=== PATIENT | female | born 2000 | race Caucasian/White ===

== ENCOUNTER 2019-01-22 07:55 | Emergency (ER) | payer SELFPAY ==
--- NOTE | 2019-01-22 09:36 | ER Document Report ---
ED Medical Screen (RME) - General Chief Complaint: Abdominal Pain Stated Complaint: STOMACH PAINS,VOMITING Time Seen by Provider: 01/22/19 09:31 Mode of Arrival: Ambulatory Information source: Patient Notes: 19-year-old female presents to ED for complaint of abdominal pain nausea vomiting and constipation. She states her last bowel movement was yesterday. She states she is type I diabetic. She has been vomiting. She states her sugars have been running in the 300's. Patient is alert oriented respirations regular and unlabored speaking in full sentences walks with even steady gait. I have greeted and performed a rapid initial assessment of this patient. A comprehensive ED assessment and evaluation of the patient, analysis of test results and completion of medical decision making process will be conducted by an additional ED providers. Dictation of this chart was performed using voice recognition software; therefore, there may be some unintended grammatical errors. TRAVEL OUTSIDE OF THE [place] IN LAST 30 DAYS: No - Related Data Allergies/Adverse Reactions: No Known Allergies Allergy (Verified 01/22/19 07:59) Physical Exam - Vital signs Vitals: Temp Pulse Resp BP Pulse Ox 97.8 F 102 H 20 117/69 98 01/22/19 08:09 01/22/19 08:09 01/22/19 08:09 01/22/19 08:09 01/22/19 08:09 Course - Vital Signs Vital signs: Temp Pulse Resp BP Pulse Ox 97.8 F 102 H 20 117/69 98 01/22/19 08:09 01/22/19 08:09 01/22/19 08:09 01/22/19 08:09 01/22/19 08:09
[2019-01-22] MEDS: NORMAL SALINE 1000 ML 1,000 ML IV PRN ×2 (09:54→09:55)
[2019-01-22 10:10] LABS: ABSOLUTE LYMPHOCYTES (AUTO) 1.1 10^3/uL (0.5-4.7); ABSOLUTE MONOCYTES (AUTO) 0.3 10^3/uL (0.1-1.4); ABSOLUTE NEUT (AUTO) 6.3 10^3/uL (1.7-8.2); BASOPHILS % (AUTO) 0.5 % (0-2); EOSINOPHILS % (AUTO) 0.4 % (0-6); HEMATOCRIT 43.1 % (36.0-47.0); HEMOGLOBIN 14.1 g/dL (12.0-15.5); LYMPHOCYTES % (AUTO) 14.5 % (13-45); MEAN CORPUSCULAR HEMOGLOBIN 28.3 pg (27.0-33.4); MEAN CORPUSCULAR HGB CONC 32.8 g/dL (32.0-36.0); MEAN CORPUSCULAR VOLUME 86 fl (80-97); MONOCYTES % (AUTO) 3.4 % (3-13); PLATELET COUNT 289 10^3/uL (150-450); RED BLOOD COUNT 4.99 10^6/uL (3.72-5.28); RED CELL DISTRIBUTION WIDTH 14.5 % (11.5-14.0); SEGMENTED NEUTROPHILS % (AUTO) 81.2 % (42-78); TOTAL CELLS COUNTED % (AUTO) 100 %; WHITE BLOOD COUNT 7.7 10^3/uL (4.0-10.5)
[2019-01-22 10:15] LABS: VENOUS BLOOD BASE EXCESS -9.2 mmol/L; VENOUS BLOOD HCO3 18.3 mmol/L (20-32); VENOUS BLOOD PCO2 45.3 mmHg (35-63); VENOUS BLOOD PH 7.22 (7.30-7.42)
[2019-01-22 10:32] LABS: APPEARANCE,URINE CLEAR; BILIRUBIN,URINE NEGATIVE (NEGATIVE); COLOR,URINE STRAW; GLUCOSE, URINE >=1000 mg/dL (NEGATIVE); KETONES,URINE 300 mg/dL (NEGATIVE); LEUKOCYTE ESTERASE,URINE NEGATIVE (NEGATIVE); NITRITE,URINE NEGATIVE (NEGATIVE); PROTEIN,URINE NEGATIVE (NEGATIVE); URINE SPECIFIC GRAVITY 1.029; UROBILINOGEN,URINE NEGATIVE mg/dL (<2.0)
[2019-01-22 10:36] LABS: ALANINE AMINOTRANSFERASE 21 U/L (9-52); ALBUMIN 4.5 g/dL (3.5-5.0); ALKALINE PHOSPHATASE 110 U/L (38-126); ANION GAP 17 (5-19); ASPARTATE AMINO TRANSFERASE 20 U/L (14-36); BILIRUBIN,DIRECT 0.4 mg/dL (0.0-0.4); BILIRUBIN,TOTAL 0.5 mg/dL (0.2-1.3); BLOOD UREA NITROGEN 10 mg/dL (7-20); CALCIUM 9.4 mg/dL (8.4-10.2); CARBON DIOXIDE 19 mmol/L (22-30); CHLORIDE 103 mmol/L (98-107); CREATINE KINASE 57 U/L (30-135); GLUCOSE 328 mg/dL (75-110); POTASSIUM 3.9 mmol/L (3.6-5.0); TOTAL PROTEIN 7.3 g/dL (6.3-8.2)
--- NOTE | 2019-01-22 11:06 | ER Document Report ---
HPI - HPI Patient complains to provider of: abdominal pain Time Seen by Provider: 01/22/19 10:45 Onset/Duration: Gradual, Intermittent Quality of pain: Cramping, Fullness Severity: Mild Pain Level: 2 Context: 18 yr old female patient, accompanied by mom per her request, with the listed pmh, here for intermittent crampy diffuse abdominal pain, and a few episodes of nonbloody nonbilous vomiting and no bm since yesterday, but has been having these sx intermittently x the last several months. took an ex lax and did a suppository yest but no bm as of yet so she came in. hx of alternating constipation and diarrhea with vomiting as well for months. she was supposed to f/u with gi to have an egd a month or more ago for the same sx but she never f/u with them secondary to lack of insurance. feels like she may have been diagnosed with ibs but isn't on any meds for it nor has she ever been. denies being diagnosed with gastroparesis or h.pylori. hx of diabetes. states sugars from from 130s-300s but she has never been in dka per pt. she does have insulin at home, endorses some compliance with it but not full compliance. No abdominal surgeries. pcp is bella, No history of ovarian cysts, fibroids, endometriosis, or renal stones. No UTI symptoms. No URI symptoms. No recent antibiotics or steroids. No history of asthma. No vaginal discharge/complaints/lesions or concerns for STDs and does not want a pelvic exam. No ripping or tearing sensation. Hasn't taken anything else for her symptoms. No excessive NSAID use, Tylenol use, or EtOH. No prior history of pancreatitis, ulcers, GI bleed, GERD, Crohn's, or UC. no blood thinners. no fall or trauma. no other associated sx. Associated Symptoms: Diarrhea, Nausea, Vomiting Exacerbated by: Denies Relieved by: Denies Similar symptoms previously: Yes Recently seen / treated by doctor: No - ROS Systems Reviewed and Negative: Yes All other systems reviewed and negative - to include 10, unless mentioned in the hpi - REPRODUCTIVE LMP: 01/02/19 Reproductive: DENIES: : - DERM Skin Color: Normal Past Medical History - General Information source: Patient, Parent - mother - Social History Smoking Status: Unknown if Ever Smoked Frequency of alcohol use: None Drug Abuse: Other - unknown Lives with: Family Family History: Reviewed & Not Pertinent Patient has suicidal ideation: No Patient has homicidal ideation: No Endocrine Medical History: Reports: Hx Diabetes Mellitus Type 1 Renal/ Medical History: Denies: Hx Peritoneal Dialysis Malignancy Medical History: Reports: None GI Medical History: Reports: Hx Irritable Bowel Psychiatric Medical History: Reports: Hx Anxiety, Hx Depression Past Surgical History: Reports: Hx Tonsillectomy - Immunizations Immunizations up to date: Yes Vertical Provider Document - CONSTITUTIONAL Notes: >>>> PHYSICAL_EXAM: GENERAL_APPEARANCE: well_nourished, alert, cooperative, no_acute_distress, no_obvious_discomfort. Pleasant, young, female, playing on her phone, smiling, speaking in full sentences, in no sign of pain or resp distress, easily sitting up, mother at bedside VITALS: reviewed, see vital signs table. HEAD: normocephalic, atraumatic. no elias signs. no raccoon eyes. EYES: PERRL, EOMI, (-)scleral icterus. NOSE: no_nasal_discharge. MOUTH: (-)decreased moisture. THROAT: no_tonsilar_inflammation/hypertrophy/exudate NECK: supple, no_neck_tenderness, full rom. full strength. no meningeal signs. BACK: no midline_back_tenderness. no step offs or deformities CHEST_WALL: no_chest_tenderness. LUNGS: no_wheezing, (-)accessory muscle use, good air exchange bilateral. HEART: normal_rate, normal_rhythm, ABDOMEN: normal_BS, soft, abdomen-diffuse, mildly ttp diffusely when not distracted. no ttp when distracted, (-)guarding, (-)rebound, no distension or peritoneal signs. neg murphys. neg mcburneys. no cva tenderness. neg heel strike. neg obturator. neg psoas. neg rovsign. PELVIC: deferred by pt RECTAL: deferred; however no sign of loss of bowel or bladder or soiling of clothing. EXTREMITIES: strength 5/5 in all_extremities, good pulses in all_extremities, no_edema, no_swelling\tenderness. full rom. normal gait. good hand packager. brisk cap refill. SKIN: warm, dry, good_color, no_rash. no grossly visible overlying skin changes to suggest trauma NEURO: motor_intact, sensory_intact. cranial nerves 2-12 intact, cerebellar fxn intact MENTAL_STATUS: normal_affect, speech_clear, oriented_X_3, responds_appropriately to questions. - INFECTION CONTROL TRAVEL OUTSIDE OF THE [place] IN LAST 30 DAYS: No Course - Re-evaluation Re-evalutation: 01/22/19 12:53 pt here for abd pain, some mild constipation since yest, and n/v x 3 x the last few days, has been intermittent for months however. states n/v has resolved since a day or so ago and she denies any nausea currently and doesn't want anything for pain or nausea. hasn't f/u with gi due to insurance/monetary reasons. she has no abd ttp on serial abd exams. triage labs unremarkable other than hyperglycemia without signs of dka. this came down from 340s at triage, to 160s after 2L of NS. ua appears also contaminated. she denies uti sx. ucx pending. triage abd kub xr shows nothing acute per rad and reviewed by myself. pt informed of her findings. advised sx care. bland diet. drink plenty of fluids. advised to keep a close check on her sugars and use her sliding scale and insulin as prescribed by her doctor and f/u closely with gi/pcp for further workup. will dc with a few zofran. advised otc miralax or mag citrate prn constipation along with stool softeners. denies any rectal bleeding/sx/pain or hx of hemorrhoids. advised to f/u with pcp/gi in 1-2 days. return for any worsening symptoms. vss. well appearing. satting well on ra. neurononfocal. pt understands and agrees to plan. On reexam, pt improved with tx listed. remained stable. nontoxic. well kranthi earing. pain controlled. tolerating po. requesting to go home. serial abd exams remain benign. Documentation achieved through voice recording which my lead to some occasional accidental typographical errors. Extensive efforts have been made to proof read documentation to make sure these are the least as possible. Category Date Time Status Accucheck (ED) NOW Care 01/22/19 09:31 Completed Accucheck (ED) Q1H Care 01/22/19 09:32 Completed PCT AccuChek Documentation NOW Care 01/22/19 09:32 Active Saline Lock (ED) NOW Care 01/22/19 09:32 Completed Vital Signs (ED) NOW Care 01/22/19 12:50 Active KUB/ABDOMEN (SINGLE VIEW) [RAD] Stat Exams 01/22/19 09:33 Completed ADD ON [ADD ON TESTING BLD IN LAB] [CHEM] Stat Lab 01/22/19 09:37 Completed CBC WITH DIFF [HEME] Stat Lab 01/22/19 09:37 Completed COMPREHENSIVE METABOLIC PANEL [CHEM] Stat Lab 01/22/19 09:37 Completed CREATINE KINASE [CHEM] Stat Lab 01/22/19 09:37 Completed HCG-QUAL, SERUM [CHEM] Stat Lab 01/22/19 09:37 Completed LIPASE [CHEM] Stat Lab 01/22/19 09:37 Completed URINALYSIS [URIN] Stat Lab 01/22/19 09:37 Completed URINE CULTURE [MC] Stat Lab 01/22/19 09:37 Completed VENOUS BLOOD GAS (PERIPHERAL) [CHEM] Stat Lab 01/22/19 09:37 Completed Normal Saline 1000 ml [NaCl 0.9% 1000 ml IV Soln] 1,000 Med 01/22/19 09:32 Discontinued ml IV X 2 BAGS - Vital Signs Vital signs: Temp Pulse Resp BP Pulse Ox 97.8 F 102 H 20 117/69 98 01/22/19 08:09 01/22/19 08:09 01/22/19 08:09 01/22/19 08:09 01/22/19 08:09 Temp Pulse Pulse Resp BP BP Pulse Ox 01/22/19 13:08 82 16 107/55 L 100 01/22/19 08:09 97.8 F 102 H 20 117/69 98 - Laboratory Result Diagrams: 01/22/19 09:37 01/22/19 09:37 Laboratory results interpreted by me: 01/22/19 01/22/19 01/22/19 09:33 09:37 09:37 RDW 14.5 H Seg Neutrophils % 81.2 H VBG pH VBG HCO3 Carbon Dioxide 19 L Glucose 328 H POC Glucose 343 H Urine Glucose (UA) Urine Ketones 01/22/19 01/22/19 01/22/19 09:37 09:37 09:45 RDW Seg Neutrophils % VBG pH 7.22 L VBG HCO3 18.3 L Carbon Dioxide Glucose POC Glucose 310 H Urine Glucose (UA) >=1000 H Urine Ketones 300 H 01/22/19 12:53 01/22/19 01/22/19 01/22/19 09:33 09:37 09:37 RDW 14.5 H Seg Neutrophils % 81.2 H VBG pH VBG HCO3 Carbon Dioxide 19 L Glucose 328 H POC Glucose 343 H Lipase Urine Glucose (UA) Urine Ketones 01/22/19 01/22/19 01/22/19 09:37 09:37 09:37 RDW Seg Neutrophils % VBG pH 7.22 L VBG HCO3 18.3 L Carbon Dioxide Glucose POC Glucose Lipase 22.0 L Urine Glucose (UA) >=1000 H Urine Ketones 300 H 01/22/19 01/22/19 09:45 11:07 RDW Seg Neutrophils % VBG pH VBG HCO3 Carbon Dioxide Glucose POC Glucose 310 H 160 H Lipase Urine Glucose (UA) Urine Ketones Category Date Time Status Accucheck (ED) NOW Care 01/22/19 09:31 Completed Accucheck (ED) Q1H Care 01/22/19 09:32 Completed PCT AccuChek Documentation NOW Care 01/22/19 09:32 Active Saline Lock (ED) NOW Care 01/22/19 09:32 Completed Vital Signs (ED) NOW Care 01/22/19 12:50 Ordered KUB/ABDOMEN (SINGLE VIEW) [RAD] Stat Exams 01/22/19 09:33 Completed ADD ON [ADD ON TESTING BLD IN LAB] [CHEM] Stat Lab 01/22/19 09:37 Completed CBC WITH DIFF [HEME] Stat Lab 01/22/19 09:37 Completed COMPREHENSIVE METABOLIC PANEL [CHEM] Stat Lab 01/22/19 09:37 Completed CREATINE KINASE [CHEM] Stat Lab 01/22/19 09:37 Completed HCG-QUAL, SERUM [CHEM] Stat Lab 01/22/19 09:37 Completed LIPASE [CHEM] Stat Lab 01/22/19 09:37 Completed URINALYSIS [URIN] Stat Lab 01/22/19 09:37 Completed URINE CULTURE [MC] Stat Lab 01/22/19 09:37 Received VENOUS BLOOD GAS (PERIPHERAL) [CHEM] Stat Lab 01/22/19 09:37 Completed Normal Saline 1000 ml [NaCl 0.9% 1000 ml IV Soln] 1,000 Med 01/22/19 09:32 Discontinued ml IV X 2 BAGS Labs- Entire Visit 01/22/19 01/22/19 01/22/19 09:33 09:37 09:37 WBC 7.7 RBC 4.99 Hgb 14.1 Hct 43.1 MCV 86 MCH 28.3 MCHC 32.8 RDW 14.5 H Plt Count 289 Seg Neutrophils % 81.2 H Lymphocytes % 14.5 Monocytes % 3.4 Eosinophils % 0.4 Basophils % 0.5 Absolute Neutrophils 6.3 Absolute Lymphocytes 1.1 Absolute Monocytes 0.3 Absolute Eosinophils 0.0 Absolute Basophils 0.0 VBG pH VBG pCO2 VBG HCO3 VBG Base Excess Sodium 139.2 Potassium 3.9 Chloride 103 Carbon Dioxide 19 L Anion Gap 17 BUN 10 Creatinine 0.63 Est GFR ( Amer) > 60 Est GFR (Non-Af Amer) > 60 Glucose 328 H POC Glucose 343 H Calcium 9.4 Total Bilirubin 0.5 Direct Bilirubin 0.4 Neonat Total Bilirubin Not Reportable Neonat Direct Bilirubin Not Reportable Neonat Indirect Bili Not Reportable AST 20 ALT 21 Alkaline Phosphatase 110 Creatine Kinase 57 Total Protein 7.3 Albumin 4.5 Lipase Serum HCG, Qual Urine Color Urine Appearance Urine pH Ur Specific [place] Urine Protein Urine Glucose (UA) Urine Ketones Urine Blood Urine Nitrite Urine Bilirubin Urine Urobilinogen Ur Leukocyte Esterase Urine WBC (Auto) Urine RBC (Auto) Urine Bacteria (Auto) Squamous Epi Cells Auto Urine Mucus (Auto) Urine Ascorbic Acid 01/22/19 01/22/19 01/22/19 09:37 09:37 09:37 WBC RBC Hgb Hct MCV MCH MCHC RDW Plt Count Seg Neutrophils % Lymphocytes % Monocytes % Eosinophils % Basophils % Absolute Neutrophils Absolute Lymphocytes Absolute Monocytes Absolute Eosinophils Absolute Basophils VBG pH 7.22 L VBG pCO2 45.3 VBG HCO3 18.3 L VBG Base Excess -9.2 Sodium Potassium Chloride Carbon Dioxide Anion Gap BUN Creatinine Est GFR ( Amer) Est GFR (Non-Af Amer) Glucose POC Glucose Calcium Total Bilirubin Direct Bilirubin Neonat Total Bilirubin Neonat Direct Bilirubin Neonat Indirect Bili AST ALT Alkaline Phosphatase Creatine Kinase Total Protein Albumin Lipase Serum HCG, Qual NEGATIVE Urine Color STRAW Urine Appearance CLEAR Urine pH 6.0 Ur Specific [place] 1.029 Urine Protein NEGATIVE Urine Glucose (UA) >=1000 H Urine Ketones 300 H Urine Blood NEGATIVE Urine Nitrite NEGATIVE Urine Bilirubin NEGATIVE Urine Urobilinogen NEGATIVE Ur Leukocyte Esterase NEGATIVE Urine WBC (Auto) 0 Urine RBC (Auto) 1 Urine Bacteria (Auto) TRACE Squamous Epi Cells Auto 1 Urine Mucus (Auto) RARE Urine Ascorbic Acid NEGATIVE 01/22/19 01/22/19 01/22/19 09:37 09:45 11:07 WBC RBC Hgb Hct MCV MCH MCHC RDW Plt Count Seg Neutrophils % Lymphocytes % Monocytes % Eosinophils % Basophils % Absolute Neutrophils Absolute Lymphocytes Absolute Monocytes Absolute Eosinophils Absolute Basophils VBG pH VBG pCO2 VBG HCO3 VBG Base Excess Sodium Potassium Chloride Carbon Dioxide Anion Gap BUN Creatinine Est GFR ( Amer) Est GFR (Non-Af Amer) Glucose POC Glucose 310 H 160 H Calcium Total Bilirubin Direct Bilirubin Neonat Total Bilirubin Neonat Direct Bilirubin Neonat Indirect Bili AST ALT Alkaline Phosphatase Creatine Kinase Total Protein Albumin Lipase 22.0 L Serum HCG, Qual Urine Color Urine Appearance Urine pH Ur Specific [place] Urine Protein Urine Glucose (UA) Urine Ketones Urine Blood Urine Nitrite Urine Bilirubin Urine Urobilinogen Ur Leukocyte Esterase Urine WBC (Auto) Urine RBC (Auto) Urine Bacteria (Auto) Squamous Epi Cells Auto Urine Mucus (Auto) Urine Ascorbic Acid - Diagnostic Test Radiology reviewed: Image reviewed, Reports reviewed Radiology results interpreted by me: 01/22/19 12:53 KUB X-Ray 01/22/19 09:33 IMPRESSION: NO RADIOGRAPHIC EVIDENCE FOR ACUTE ABDOMINAL DISEASE. No constipation. Discharge - Discharge Clinical Impression: Hyperglycemia Abdominal pain Qualifiers: Abdominal location: generalized Qualified Code(s): R10.84 - Generalized abdominal pain Constipation Qualifiers: Constipation type: unspecified constipation type Qualified Code(s): K59.00 - Constipation, unspecified Vomiting Qualifiers: Vomiting type: unspecified Vomiting Intractability: non-intractable Nausea presence: unspecified Qualified Code(s): R11.10 - Vomiting, unspecified Condition: Good Disposition: HOME, SELF-CARE Instructions: Abdominal Pain ([facility]), Vomiting ([facility]) Additional Instructions: Follow-up with PCP/GI in 1 to 2 days. Return for any worsening symptoms. Drink plenty of fluids. High-fiber diet. MiraLAX or [id number] magnesium citrate to have a good bowel movement. Colace or similar [id number] stool softener. Keep a close check on your blood sugars and adjust your insulin as instructed per your specialist. Follow-up with GI for your chronic abdominal pain for further workup of this as discussed. Prescriptions: Ondansetron [Zofran Odt 4 mg Tablet] 1 - 2 tab PO Q8 #15 tab.rapdis Forms: Return to Work
--- NOTE | 2019-01-22 12:06 | RADIOLOGY REPORT (SQ) ---
EXAM DESCRIPTION: KUB/ABDOMEN (SINGLE VIEW) COMPLETED DATE/TIME: 01/22/2019 11:16 am REASON FOR STUDY: IF hCG is negative; patient states constipation COMPARISON: None. NUMBER OF VIEWS: One view. TECHNIQUE: Supine radiographic image of the abdomen acquired. LIMITATIONS: None. FINDINGS: BOWEL GAS PATTERN: Normal bowel gas pattern. No dilated loops. CONSTIPATION: No CALCIFICATIONS: No suspicious calcifications. SOFT TISSUES: No gross mass or suggestion of organomegaly. HARDWARE: None in the abdomen. BONES: No acute fracture. No worrisome bone lesions. OTHER: No other significant finding. IMPRESSION: NO RADIOGRAPHIC EVIDENCE FOR ACUTE ABDOMINAL DISEASE. No constipation. TECHNICAL DOCUMENTATION: JOB ID: [id number] [employer]- All Rights Reserved Reading location - IP/workstation name: [email or web address]
[2019-01-22 13:09] VITALS: BP 107/55
== END 2019-01-22 13:09 | disposition home or self-care (01) ==
LOC: ER 07:55
DX: K59.00 Constipation, unspecified (principal); E10.65 Type 1 diabetes mellitus with hyperglycemia; Z91.14 Patient's other noncompliance with medication regimen; R10.84 Generalized abdominal pain; R11.2 Nausea with vomiting, unspecified; R19.7 Diarrhea, unspecified
CPT/HCPCS: 99284; 96360; 36415; 87086; 82962; 82550; 83690; 84703; 85025; 80053; 81001; 82803; 74018; J7030

== ENCOUNTER 2019-05-29 14:28 | Emergency (ER) | payer SELFPAY ==
--- NOTE | 2019-05-29 14:45 | ER Document Report ---
HPI - HPI Time Seen by Provider: 05/29/19 14:33 Context: Patient is a 18-year-old female with a history of type 2 diabetes and anxiety who presents to the emergency department with chief complaint of right hand pain. Patient reports on Tuesday while at work she hit her hand on a tray. Patient reports from this incident she does have right lateral hand pain. Patient states last night she was playing with her cat when her cat went to scratch her at the base of the fourth digit on the right hand. Patient reports as her cat attempted to scratch her she pulled her hand back. Patient reports she did not hit her hand on anything but does have bruising to the area. Patient reports the scratch is very superficial. Patient denies fever, inability to move her fingers or make a fist. Patient denies numbness or tingling to her hand. Patient reports she wanted to get checked out due to the multiple injuries to the right hand and bruising. - REPRODUCTIVE Reproductive: DENIES: : Past Medical History - General Information source: Patient - Social History Smoking Status: Unknown if Ever Smoked Lives with: Family Family History: Reviewed & Not Pertinent - Past Medical History Cardiac Medical History: Reports: None Pulmonary Medical History: Reports: None EENT Medical History: Reports: None Neurological Medical History: Reports: None Endocrine Medical History: Reports: Hx Diabetes Mellitus Type 1 Renal/ Medical History: Reports: None. Denies: Hx Peritoneal Dialysis Malignancy Medical History: Reports: None GI Medical History: Reports: Hx Irritable Bowel Musculoskeletal Medical History: Reports None Skin Medical History: Reports None Psychiatric Medical History: Reports: Hx Anxiety, Hx Depression Traumatic Medical History: Reports: None Infectious Medical History: Reports: None Past Surgical History: Reports: Hx Tonsillectomy - Immunizations Immunizations up to date: Yes Vertical Provider Document - CONSTITUTIONAL Agree With Documented VS: Yes Exam Limitations: No Limitations General Appearance: No Apparent Distress - INFECTION CONTROL TRAVEL OUTSIDE OF THE [place] IN LAST 30 DAYS: No - HEENT HEENT: Atraumatic, Normocephalic, PERRLA - RESPIRATORY Respiratory: Breath Sounds Normal, No Respiratory Distress - CARDIOVASCULAR Cardiovascular: Regular Rate, Regular Rhythm - GI/ABDOMEN Gastrointestinal: Abdomen Soft, Abdomen Non-Tender, Normal Bowel Sounds - MUSCULOSKELETAL/EXTREMETIES Notes: Patient has point tenderness to the base of the right fifth metacarpal. There is no surrounding edema or ecchymosis. Patient has a superficial abrasion to the base of the right fourth digit. There is surrounding ecchymosis that extends past the PIP joint. There is no point tenderness to the DIP, PIP or MCP joint. There is no surrounding edema. Patient is able to make a strong chef german bilaterally. Patient has less than 2-second cap refill in all digits on the right hand. Patient has good flexion extension of the right fourth digit. Patient has a strong radial pulse. - NEURO Level of Consciousness: Awake, Alert, Appropriate - DERM Integumentary: Warm, Dry, No Rash Course - Re-evaluation Re-evalutation: 05/29/19 14:44 Patient reports her tetanus is up-to-date. Patient does have multiple scratches on her arms from the cat. She reports she has had this cat since it was a kitten but does not take it to the vet. There are no puncture wounds, lacerations or bite agosto. 05/29/19 15:44 Patient's x-ray was negative. I did inform the patient to keep her hand clean and dry. We will place the patient on doxycycline as a prophylactic antibiotic due to the cat scratch. These wounds do appear very superficial. I did inform the patient that her likelihood of rabies is extremely low as this is her cat who stays inside. She states she does not take her To the vet. She states the cat is not acting strangely or abnormally. The scratch was unprovoked. - Diagnostic Test Radiology reviewed: Reports reviewed Radiology results interpreted by me: 05/29/19 15:43 Hand X-Ray 05/29/19 14:39 IMPRESSION: No acute osseous abnormality of the right hand. Discharge - Discharge Clinical Impression: Right hand pain, Scratched by cat, initial encounter Injury of right hand Qualifiers: Encounter type: initial encounter Qualified Code(s): S69.91XA - Unspecified injury of right wrist, hand and finger(s), initial encounter Condition: Stable Disposition: HOME, SELF-CARE Additional Instructions: Today you are seen in the emergency department for a right hand injury. Your x- ray was negative for any acute fracture or dislocation. Your symptoms are most likely due to a contusion which is a bruise underneath the skin. Please use ice and elevation. Please take ibuprofen or Tylenol. I am placing you on doxycycline as a prophylactic antibiotic due to the multiple cat scratches. They do not appear infected at this time and are extremely superficial. Please monitor for signs of infection such as redness, increased swelling, drainage, fever or inability to move your fingers or hand. Contusion Your injury has resulted in a contusion -- a crushing of the deep tissues. No injury to important structures was detected during the physician's exam. Contusions vary in the amount of pain they cause, and in the length of time required for healing. Typically, the area will become bruised, and will remain painful to touch for two or three weeks. However, most patients are back to working and playing within a few days. After the initial period of rest and cold-packs, your symptoms (together with the doctor's recommendations) will determine how rapidly you can get back to full activity. Usually this means "do what feels okay, but don't do things that hurt." If re-examination was recommended, it's important to follow up as instructed. Call the doctor or return any time if pain increases, if swelling becomes severe, if you develop numbness or weakness in an injured extremity, or if any other alarming symptoms occur. Doxycycline Doxycycline (Vibramycin, Doryx) is an antibiotic of the tetracycline family. This type of drug is useful for infections of the respiratory tract and genital tract, and is sometimes used for intestinal infections. Unlike most tetracyclines, doxycycline can be taken with food. It is longer acting, and (usually) less prone to side effects than regular tetracycline. Tetracycline antibiotics can stain immature teeth and SHOULD NOT BE TAKEN B Y CHILDREN, NURSING MOTHERS, OR WOMEN. Tetracyclines can make you more prone to sunburn. Abdominal cramping, nausea, and diarrhea are occasional side effects. Women may experience vaginal yeast infections. Call the doctor at once if you develop hives, itching, shortness of breath, or lightheadedness. Prescriptions: Doxycycline Hyclate 100 mg PO BID #14 capsule Forms: Return to Work
[2019-05-29 15:08] VITALS: BP 124/64
--- NOTE | 2019-05-29 15:31 | RADIOLOGY REPORT (SQ) ---
EXAM DESCRIPTION: HAND RIGHT 3 VIEWS COMPLETED DATE/TIME: 05/29/2019 3:14 pm REASON FOR STUDY: right lateral hand pain, bruising to 4th digit COMPARISON: None. EXAM PARAMETERS: NUMBER OF VIEWS: Three views. TECHNIQUE: AP, lateral and oblique radiographic images acquired of the right hand. LIMITATIONS: None. FINDINGS: MINERALIZATION: Normal. BONES: No acute fracture or dislocation. No osseous lesions. JOINTS: No effusions. SOFT TISSUES: No soft tissue swelling or radiopaque foreign body. OTHER: No other finding. IMPRESSION: No acute osseous abnormality of the right hand. TECHNICAL DOCUMENTATION: JOB ID: [id number] [employer]- All Rights Reserved Reading location - IP/workstation name: [email or web address]
== END 2019-05-29 15:50 | disposition home or self-care (01) ==
LOC: ER 14:28
DX: S60.414A Abrasion of right ring finger, initial encounter (principal); W55.03XA Scratched by cat, initial encounter; M79.641 Pain in right hand; S69.91XA Unspecified injury of right wrist, hand and finger(s), initial encounter; W22.09XA Striking against other stationary object, initial encounter; F41.9 Anxiety disorder, unspecified; E10.9 Type 1 diabetes mellitus without complications

== ENCOUNTER 2019-09-17 11:09 | Emergency (ER) | payer SELFPAY ==
[2019-09-17 11:21] VITALS: BP 129/68
[2019-09-17] MEDS ORDERED: METHOCARBAMOL 500 MG TABLET PO ONE (11:39)
[2019-09-17] MEDS ORDERED: IBUPROFEN 600 MG TABLET PO ONE (11:39)
[2019-09-17] MEDS ORDERED: ACETAMINOPHEN 325 MG TABLET PO ONE (11:39)
--- NOTE | 2019-09-17 11:40 | ER Document Report ---
HPI - HPI Time Seen by Provider: 09/17/19 11:31 Pain Level: 1 Context: Patient is a 18-year-old female with a history of insulin-dependent diabetes who presents the emergency department with left back pain. Patient states that she was cleaning her house 3 days ago and ended up having some back pain. The pain ended up staying. Pain ended up wrapping around her left side of her chest. Patient has not taken any medications to help with her symptoms. Patient denies any problems with her blood sugar, other than it being low this morning and states that she ate and it went back up. - CONSTITUTIONAL Constitutional: DENIES: Fever, Chills - EENT EENT: DENIES: Sore Throat, Ear Pain - NEURO Neurology: DENIES: Headache, Weakness, Vision blurred - CARDIOVASCULAR Cardiovascular: DENIES: Chest pain - RESPIRATORY Respiratory: DENIES: Trouble Breathing, Coughing - GASTROINTESTINAL Gastrointestinal: DENIES: Abdominal Pain, Nausea, Patient vomiting - REPRODUCTIVE Reproductive: DENIES: : - MUSCULOSKELETAL Musculoskeletal: REPORTS: Back Pain - left upper. DENIES: Neck Pain, Swelling - DERM Skin Color: Normal Skin Problems: None Past Medical History - Social History Smoking Status: Never Smoker Frequency of alcohol use: None Drug Abuse: None Family History: Reviewed & Not Pertinent Patient has suicidal ideation: No Patient has homicidal ideation: No Endocrine Medical History: Reports: Hx Diabetes Mellitus Type 1 Renal/ Medical History: Denies: Hx Peritoneal Dialysis GI Medical History: Reports: Hx Irritable Bowel Psychiatric Medical History: Reports: Hx Anxiety, Hx Depression Past Surgical History: Reports: Hx Tonsillectomy - Immunizations Immunizations up to date: Yes Vertical Provider Document - CONSTITUTIONAL Agree With Documented VS: Yes Exam Limitations: No Limitations General Appearance: No Apparent Distress - INFECTION CONTROL TRAVEL OUTSIDE OF THE [place] IN LAST 30 DAYS: No - HEENT HEENT: Atraumatic, Normocephalic, PERRLA - NECK Neck: Normal Inspection - RESPIRATORY Respiratory: Breath Sounds Normal, No Respiratory Distress - CARDIOVASCULAR Cardiovascular: Regular Rate, Regular Rhythm Pulses: Normal: Radial - BACK Back: Normal Inspection. negative: CVA Tenderness-Right, CVA Tenderness-Left - MUSCULOSKELETAL/EXTREMETIES Musculoskeletal/Extremeties: FROM, Tender - left upper back at paraspinal muscles - NEURO Level of Consciousness: Awake, Alert, Appropriate - DERM Integumentary: Warm, Dry, No Rash Course - Re-evaluation Re-evalutation: 09/17/19 11:46 Physical exam is consistent with muscle tension in her back. Have very low suspicion for any life-threatening etiology at this time. Patient will be sent home with Robaxin. Educated patient on back exercises at home. She will follow-up with [facility] or [facility] in regards to this visit. Follow-up precautions were given. Verbal discharge instructions were given to the patient. They verbalized understanding. They are stable for discharge. - Vital Signs Vital signs: Temp Pulse Resp BP Pulse Ox 98.0 F 97 20 129/68 H 95 09/17/19 11:20 09/17/19 11:20 09/17/19 11:20 09/17/19 11:20 09/17/19 11:20 Discharge - Discharge Clinical Impression: Back pain Qualifiers: Back pain location: thoracic back pain Chronicity: acute Back pain laterality: left Qualified Code(s): M54.6 - Pain in thoracic spine Condition: Stable Disposition: HOME, SELF-CARE Additional Instructions: You were seen today in the emergency department for upper back pain. Your pain is due to tense muscles in your back. I highly recommend that you buy a foam roller and do some back stretches and back massages at home. Take ibuprofen 600 mg and acetaminophen 1000 mg every 6 hours for your pain. You are being sent home with a prescription for Robaxin, a muscle relaxer. Please follow-up with 1 of the clinics below in regards to this visit and your diabetes. Prescriptions: Methocarbamol [Robaxin 500 mg Tablet] 500 mg PO QID PRN #30 tablet PRN Reason: Referrals: [facility] [Provider Group] - Follow up in 3-5 days [facility] [Provider Group] - Follow up in 3-5 days
== END 2019-09-17 11:51 | disposition home or self-care (01) ==
LOC: ER 11:09
DX: M54.6 Pain in thoracic spine (principal); E10.9 Type 1 diabetes mellitus without complications; Z79.4 Long term (current) use of insulin
CPT/HCPCS: 99283

== ENCOUNTER 2019-10-14 13:57 | Emergency (ER) | payer SELFPAY ==
[2019-10-14] MEDS ORDERED: METOCLOPRAMIDE HCL ORAL SOLN 10 MG/10 ML UDCUP PO ONE (14:06)
[2019-10-14] MEDS ORDERED: MAG HYDROX/AL HYDROX/SIMETH SUSP 30 ML UDCUP PO ONE (14:06)
[2019-10-14] MEDS ORDERED: LIDOCAINE 2% VISCOUS SOLN 15 ML UDCUP PO ONE (14:06)
--- NOTE | 2019-10-14 14:09 | ER Document Report ---
ED Medical Screen (RME) - General Chief Complaint: Abdominal Pain Stated Complaint: ABDOMIAL PAIN Time Seen by Provider: 10/14/19 14:01 TRAVEL OUTSIDE OF THE [place] IN LAST 30 DAYS: No - HPI Notes: 10/14/19 14:07 18-year-old female who is a type I diabetic presents to the emergency room for evaluation of epigastric abdominal pain for the last 2 weeks. Patient states that she has had nausea and is only vomited once. States is a burning sensation and it only happens after eating dinner, no issues with breakfast or lunch. Patient recently changed her insulin for insulin pump and she is wondering if t his could also be adding to her abdominal discomfort. Denies any abdominal surgeries. Patient does not have a primary care provider she does follow [facility]. Denies any fevers or chills, denies any diarrhea. No new foods or travel. pt denies . PHYSICAL EXAMINATION: Vital signs reviewed. GENERAL: Well-appearing, well-nourished and in no acute distress. CV: Heart regular rate and rhythm LUNGS: No respiratory distress ABD: epigastric abd pain Musculoskeletal: Normal range of motion NEUROLOGICAL: Normal speech PSYCH: Normal mood, normal affect. MDM: Patient seen and examined for rapid initial assessment. Vital signs reviewed. A comprehensive ED assessment and evaluation of the patient, analysis of test results and completion of the medical decision making process will be conducted by additional ED providers. *Note is created using voice recognition software and may contain spelling, syntax or grammatical errors. - Related Data Allergies/Adverse Reactions: Penicillins Allergy (Verified 10/14/19 14:01) Past Medical History - Social History Frequency of alcohol use: None Drug Abuse: None Endocrine Medical History: Reports: Hx Diabetes Mellitus Type 1 Renal/ Medical History: Denies: Hx Peritoneal Dialysis GI Medical History: Reports: Hx Irritable Bowel Psychiatric Medical History: Reports: Hx Anxiety, Hx Depression Past Surgical History: Reports: Hx Tonsillectomy - Immunizations Immunizations up to date: Yes
--- NOTE | 2019-10-14 14:34 | ER Document Report ---
ED GI/ - General Chief Complaint: Abdominal Pain Stated Complaint: ABDOMIAL PAIN Time Seen by Provider: 10/14/19 14:01 Notes: CHIEF COMPLAINT: Epigastric abdominal pain after eating HPI: 18-year-old female who is otherwise healthy presenting to the emergency department complaining of epigastric pain after eating dinner at night. Describes it as a burning sensation. No chest pain shortness of breath. No radiation into the back neck or arms. Patient states that she does eat fairly late, does go to sleep at night and is unsure whether that or the Tums or Pepto- Bismol that she is taking are helping with the discomfort. No fever. Patient states that symptoms have been intermittent over the last month but have been almost nightly for the last 2 weeks. Has not seen a primary care provider for evaluation of symptoms. Patient states currently she does not have any abdominal discomfort. Patient states that she has had some nausea with this . ROS: See HPI - all other systems were reviewed and are otherwise negative Constitutional: no fever Eyes: no drainage, no blurred vision ENT: no runny nose, no sore throat Cardiovascular: no chest pain Resp: no SOB, no cough GI: no vomiting, no diarrhea, + abdominal pain : no dysuria Integumentary: no rash Allergy: no hives Musculoskeletal: no extremity pain or swelling Neurological: no numbness/tingling, no weakness MEDICATIONS: I agree with the patient medications as charted by the RN. ALLERGIES: I agree with the allergies as charted by the RN. PAST MEDICAL HISTORY/PAST SURGICAL HISTORY: Reviewed and agree as charted by RN. SOCIAL HISTORY: Reviewed and agree as charted by RN. FAMILY HISTORY: No significant familial comorbid conditions directly related to patient complaint EXAM: Reviewed vital signs as charted by RN. CONSTITUTIONAL: Alert and oriented and responds appropriately to questions. Well-appearing; well-nourished HEAD: Normocephalic; atraumatic EYES: PERRL; Conjunctivae clear, sclerae non-icteric ENT: normal nose; no rhinorrhea; moist mucous membranes; pharynx without lesions noted, no uvula edema or deviation, no tonsillar hypertrophy, phonation normal NECK: Supple without meningismus; non-tender; no cervical lymphadenopathy, no masses CARD: RRR; no murmurs, no clicks, no rubs, no gallops; symmetric distal pulses RESP: Normal chest excursion without splinting or tachypnea; breath sounds clear and equal bilaterally; no wheezes, no rhonchi, no rales, pulse oximetry 98% on room air not hypoxic ABD/GI: Normal bowel sounds; non-distended; soft, non-tender, no rebound, no guarding; no palpable organomegaly or masses. BACK: The back appears normal and is non-tender to palpation, there is no CVA tenderness EXT: Normal ROM in all joints; non-tender to palpation; no cyanosis, no effusions, no edema SKIN: Normal color for age and race; warm; dry; good turgor; no acute lesions noted NEURO: Moves all extremities equally; Motor and sensory function intact PSYCH: The patient's mood and manner are appropriate. Grooming and personal hygiene are appropriate. MDM: 18-year-old female with epigastric abdominal pain after eating at night. Low suspicion for ACS patient is otherwise heart healthy. Initial screening labs through the triage process. She has reproducible discomfort in the epigastric region. Ultrasound pending for cholelithiasis or cholecystitis TRAVEL OUTSIDE OF THE [place] IN LAST 30 DAYS: No - Related Data Allergies/Adverse Reactions: Penicillins Allergy (Verified 10/14/19 14:01) Past Medical History - Social History Smoking Status: Never Smoker Frequency of alcohol use: None Drug Abuse: None Family History: Reviewed & Not Pertinent Patient has suicidal ideation: No Patient has homicidal ideation: No Endocrine Medical History: Reports: Hx Diabetes Mellitus Type 1 Renal/ Medical History: Denies: Hx Peritoneal Dialysis GI Medical History: Reports: Hx Irritable Bowel Psychiatric Medical History: Reports: Hx Anxiety, Hx Depression Past Surgical History: Reports: Hx Tonsillectomy - Immunizations Immunizations up to date: Yes Physical Exam - Vital signs Vitals: Temp Pulse Resp BP Pulse Ox 98.1 F 102 H 16 118/72 96 10/14/19 14:00 10/14/19 14:00 10/14/19 14:00 10/14/19 14:00 10/14/19 14:00 Course - Re-evaluation Re-evalutation: 10/14/19 15:57 Patient's lab work does not show any acute abnormalities her ultrasound is neg ative for acute findings. This is likely gastritis or reflux in this otherwise healthy patient. I spoke with her at length, she is requesting a generic prescription given that she has no insurance. Patient glucose level was mildly elevated I did discuss this with her she states that she ate and drink right before coming in. This explains the contracted gallbladder on ultrasound. Will have patient follow-up outpatient with medicine and GI - Vital Signs Vital signs: Temp Pulse Resp BP Pulse Ox 98.1 F 102 H 16 118/72 96 10/14/19 14:00 10/14/19 14:00 10/14/19 14:00 10/14/19 14:00 10/14/19 14:00 - Laboratory Result Diagrams: 10/14/19 14:43 10/14/19 14:43 Laboratory results interpreted by me: 10/14/19 10/14/19 10/14/19 14:43 14:43 14:43 Hct 35.7 L RDW 14.8 H Sodium 135.6 L Glucose 231 H Total Protein 6.1 L Albumin 3.4 L Urine Glucose (UA) >=500 H Discharge - Discharge Clinical Impression: Abdominal pain, acute, epigastric Condition: Stable Disposition: HOME, SELF-CARE Additional Instructions: Take the medication as prescribed. Avoid greasy spicy or fried foods. Follow- up closely with both medicine and gastroenterology for further evaluation and treatment as discussed. Make sure that you use good Rx with your prescription Prescriptions: Famotidine [Pepcid 20 mg Tablet] 20 mg PO BID #14 tablet Referrals: CONSTANTIN SANDERS MD [ACTIVE STAFF] - Follow up as needed RODNEY TIMMONS MD [ACTIVE STAFF] - Follow up as needed
--- NOTE | 2019-10-14 14:53 | RADIOLOGY REPORT (SQ) ---
EXAM DESCRIPTION: CHEST SINGLE VIEW IMAGES COMPLETED DATE/TIME: 10/14/2019 2:44 pm REASON FOR STUDY: epigastric abd pain COMPARISON: Abdominal films 01/22/2019 EXAM PARAMETERS: NUMBER OF VIEWS: One view. TECHNIQUE: Single frontal radiographic view of the chest acquired. RADIATION DOSE: NA LIMITATIONS: None. FINDINGS: LUNGS AND PLEURA: No opacities, masses or pneumothorax. No pleural effusion. MEDIASTINUM AND HILAR STRUCTURES: No masses. Contour normal. HEART AND VASCULAR STRUCTURES: Heart normal in size. Normal vasculature. BONES: No acute findings. HARDWARE: None in the chest. OTHER: No other significant finding. IMPRESSION: NO ACUTE RADIOGRAPHIC FINDING IN THE CHEST. TECHNICAL DOCUMENTATION: JOB ID: [id number] 2010 [employer]- All Rights Reserved Reading location - IP/workstation name: [id number]
[2019-10-14 15:03] LABS: ABSOLUTE LYMPHOCYTES (AUTO) 1.9 10^3/uL (0.5-4.7); ABSOLUTE MONOCYTES (AUTO) 0.5 10^3/uL (0.1-1.4); ABSOLUTE NEUT (AUTO) 4.3 10^3/uL (1.7-8.2); BASOPHILS % (AUTO) 0.7 % (0-2); EOSINOPHILS % (AUTO) 0.1 % (0-6); HEMATOCRIT 35.7 % (36.0-47.0); HEMOGLOBIN 12.3 g/dL (12.0-15.5); LYMPHOCYTES % (AUTO) 27.9 % (13-45); MEAN CORPUSCULAR HEMOGLOBIN 28.8 pg (27.0-33.4); MEAN CORPUSCULAR HGB CONC 34.4 g/dL (32.0-36.0); MEAN CORPUSCULAR VOLUME 84 fl (80-97); MONOCYTES % (AUTO) 7.7 % (3-13); PLATELET COUNT 280 10^3/uL (150-450); RED BLOOD COUNT 4.25 10^6/uL (3.72-5.28); RED CELL DISTRIBUTION WIDTH 14.8 % (11.5-14.0); SEGMENTED NEUTROPHILS % (AUTO) 63.6 % (42-78); TOTAL CELLS COUNTED % (AUTO) 100 %; WHITE BLOOD COUNT 6.8 10^3/uL (4.0-10.5)
[2019-10-14 15:18] LABS: APPEARANCE,URINE SLIGHTLY-CLOUDY; BILIRUBIN,URINE NEGATIVE (NEGATIVE); COLOR,URINE YELLOW; GLUCOSE, URINE >=500 mg/dL (NEGATIVE); KETONES,URINE NEGATIVE (NEGATIVE); LEUKOCYTE ESTERASE,URINE NEGATIVE (NEGATIVE); NITRITE,URINE NEGATIVE (NEGATIVE); PROTEIN,URINE NEGATIVE (NEGATIVE); URINE SPECIFIC GRAVITY 1.031; UROBILINOGEN,URINE NEGATIVE mg/dL (<2.0)
[2019-10-14 15:23] LABS: ALBUMIN 3.4 g/dL (3.5-5.0); ALKALINE PHOSPHATASE 83 U/L (38-126); ASPARTATE AMINO TRANSFERASE 16 U/L (14-36); BILIRUBIN,TOTAL 0.2 mg/dL (0.2-1.3); BLOOD UREA NITROGEN 17 mg/dL (7-20); CALCIUM 8.8 mg/dL (8.4-10.2); CARBON DIOXIDE 27 mmol/L (22-30); GLUCOSE 231 mg/dL (75-110); POTASSIUM 4.3 mmol/L (3.6-5.0); TOTAL PROTEIN 6.1 g/dL (6.3-8.2)
[2019-10-14 15:32] LABS: CHLORIDE 103 mmol/L (98-107)
--- NOTE | 2019-10-14 15:33 | RADIOLOGY REPORT (SQ) ---
EXAM DESCRIPTION: U/S ABDOMEN LTD W/DOPPLER IMAGES COMPLETED DATE/TIME: 10/14/2019 3:10 pm REASON FOR STUDY: epigastric pain, worse after dinner only COMPARISON: None. TECHNIQUE: Dynamic and static grayscale images acquired of the abdomen and recorded on PACS. Additio nal selected color Doppler and spectral images recorded. LIMITATIONS: Patient ate less than 1 hour ago, contracted gallbladder Midline bowel gas Body habitus FINDINGS: PANCREAS: Not visualized LIVER: No masses. Echotexture normal. LIVER VASCULATURE: Normal directional flow of the main portal vein and hepatic veins. GALLBLADDER: Contracted, not well visualized. No gross gallstones. Gallbladder wall 3 mm. No peric holecystic fluid ULTRASOUND-DETECTED SUAREZ'S SIGN: Negative. INTRAHEPATIC DUCTS AND COMMON DUCT: CBD and intrahepatic ducts normal caliber. No filling defects. D istal common bile duct not well-visualized INFERIOR VENA CAVA: Normal flow. AORTA: No aneurysm. RIGHT KIDNEY: Normal size. Normal echogenicity. No solid or suspicious masses. No hydronephrosis. No calcifications. PERITONEAL AND RIGHT PLEURAL SPACE: No ascites or effusions. OTHER: No other significant findings. IMPRESSION: Contracted gallbladder. No gross gallstones TECHNICAL DOCUMENTATION: JOB ID: [id number] 2010 [employer]- All Rights Reserved Reading location - IP/workstation name: [id number]
[2019-10-14 15:37] LABS: ANION GAP 6 (5-19)
[2019-10-14 16:00] VITALS: BP 116/71
== END 2019-10-14 16:09 | disposition home or self-care (01) ==
LOC: ER 13:57
DX: R10.13 Epigastric pain (principal); E10.9 Type 1 diabetes mellitus without complications; Z87.19 Personal history of other diseases of the digestive system; Z88.0 Allergy status to penicillin
CPT/HCPCS: 36415; 71045; 76705; 80053; 81001; 81025; 83690; 85025; 93976; 99284

== ENCOUNTER → 2020-01-01 | Outpatient (CLI) | payer MEDICAID ==
--- NOTE | 2020-01-01 13:11 | RADIOLOGY REPORT (SQ) ---
EXAM DESCRIPTION: NM GASTRIC EMPTYING STUDY IMAGES COMPLETED DATE/TIME: 01/01/2020 12:42 pm REASON FOR STUDY: EPIGASTRIC PAIN (R10.13) R10.13 EPIGASTRIC PAIN COMPARISON: None. RADIONUCLIDE AND DOSE: 2 millicuries Tc-99m Sulfur Colloid. Egg salad sandwich The route of agent administration: Oral. TECHNIQUE: 1 minute serial static imaging performed at time of meal, 1 hour, 2 hours, 3 hours, and 4 hours as needed. Once stomach reaches 90% emptying, the test is complete. Image intensity values pl otted with respect to time with linear regression algorithm. LIMITATIONS: None. FINDINGS: Patient was observed for 4 hours. Immediate post meal serves as baseline. Gastric emptying at 30 minutes was 20.3%. Gastric emptying at 60 minutes was 44.2% Gastric emptying at 90 minutes was 62.6%. Gastric emptying at 120 minutes was 75.5%. Gastric emptying at 240 minutes was 95.9%. Normal values: 60 minutes: 30-90% retained. If less than 30%, abnormally rapid emptying. If greater than 90%, delaye d gastric emptying. 120 minutes: <60% retained. If greater than 60%, delayed gastric emptying. 240 minutes: <10% retained. If greater than 10%, delayed gastric emptying. IMPRESSION: NORMAL GASTRIC EMPTYING. TECHNICAL DOCUMENTATION: JOB ID: [id number] 2010 [employer]- All Rights Reserved rev-12/02 Reading location - IP/workstation name: [email or web address]
== END ==
LOC: RAD 07:50
PROVIDERS: ATTEND Internal Medicine Gastroenterology
DX: R10.13 Epigastric pain (principal)
CPT/HCPCS: 78264; A9541

== ENCOUNTER 2020-02-07 08:22 | Emergency (ER) | payer MEDICAID ==
[2020-02-07 10:23] LABS: ABSOLUTE EOSINOPHILS # (AUTO) 0.3 10^3/uL (0.0-0.6); ABSOLUTE LYMPHOCYTES (AUTO) 1.4 10^3/uL (0.5-4.7); ABSOLUTE MONOCYTES (AUTO) 0.9 10^3/uL (0.1-1.4); ABSOLUTE NEUT (AUTO) 10.4 10^3/uL (1.7-8.2); BASOPHILS % (AUTO) 0.2 % (0-2); EOSINOPHILS % (AUTO) 2.1 % (0-6); HEMATOCRIT 45.5 % (36.0-47.0); HEMOGLOBIN 14.9 g/dL (12.0-15.5); LYMPHOCYTES % (AUTO) 10.7 % (13-45); MEAN CORPUSCULAR HEMOGLOBIN 28.5 pg (27.0-33.4); MEAN CORPUSCULAR HGB CONC 32.7 g/dL (32.0-36.0); MEAN CORPUSCULAR VOLUME 87 fl (80-97); MONOCYTES % (AUTO) 6.8 % (3-13); PLATELET COUNT 300 10^3/uL (150-450); RED BLOOD COUNT 5.23 10^6/uL (3.72-5.28); RED CELL DISTRIBUTION WIDTH 14.4 % (11.5-14.0); SEGMENTED NEUTROPHILS % (AUTO) 80.2 % (42-78); TOTAL CELLS COUNTED % (AUTO) 100 %; WHITE BLOOD COUNT 12.9 10^3/uL (4.0-10.5)
[2020-02-07] MEDS ORDERED: ACETAMINOPHEN 325 MG TABLET PO ONE (10:26)
[2020-02-07] MEDS ORDERED: ONDANSETRON 4 MG TAB.RAPDIS PO ONE (10:26)
[2020-02-07] MEDS ORDERED: DEXAMETHASONE 4 MG TABLET PO ONE (10:26)
--- NOTE | 2020-02-07 10:29 | ER Document Report ---
ED General - General Chief Complaint: Nausea/Vomiting Stated Complaint: ABDOMINAL PAIN/VOMITING Time Seen by Provider: 02/07/20 09:43 Primary Care Provider: AMAIRANI FARMER MD [NO LOCAL MD] - Follow up as needed Notes: 19-year-old female with past medical history of anxiety, diabetes type I and acid reflux presenting today with epigastric pain and nausea and vomiting that started at 5 AM. States that she woke up and she was nauseous. She went to take her antacid medication and her anxiety medication she threw it up. Patient states that she feels nauseous in the ER today states she had 1 episode of vomiting states she is not having any epigastric pain at this time. States that she has been on her antacid medication for a month but states whenever she tries to take it she is nauseous and throws it up. She denies any fever, chills, shortness of breath or additional symptoms at this time. TRAVEL OUTSIDE OF THE [place] IN LAST 30 DAYS: No - Related Data Allergies/Adverse Reactions: amoxicillin Allergy (Verified 02/07/20 10:17) Penicillins Allergy (Verified 02/07/20 10:17) Past Medical History - Social History Smoking Status: Never Smoker Frequency of alcohol use: Occasional Drug Abuse: None Family History: Reviewed & Not Pertinent Patient has homicidal ideation: No Endocrine Medical History: Reports: Hx Diabetes Mellitus Type 1 Renal/ Medical History: Denies: Hx Peritoneal Dialysis GI Medical History: Reports: Hx Irritable Bowel Psychiatric Medical History: Reports: Hx Anxiety, Hx Depression Past Surgical History: Reports: Hx Tonsillectomy - Immunizations Immunizations up to date: Yes Review of Systems - Review of Systems Constitutional: No symptoms reported EENT: See HPI Cardiovascular: No symptoms reported Respiratory: No symptoms reported Gastrointestinal: No symptoms reported Physical Exam - Vital signs Vitals: Temp 98.6 F 02/07/20 09:30 Interpretation: Normal - Notes Notes: Adult General: GENERAL: Alert, interacts well. No acute distress HEAD: Normocephalic, atraumatic EYES: Pupils equal, round and reactive to light. Extraocular movements intact. ENT: Oral mucosa moist, tongue midline. Oropharynx unremarkable. Uvula is midline. Airway patent. Nares patent, sinuses nontender, ear canals unremarkable. NECK: Full range of motion. Supple. Trachea midline. No lymphadenopathy. LUNGS: Clear to auscultation bilaterally, no wheezes, rales, or rhonchi. No respiratory distress. Nontender chest wall. HEART: Regular rate and rhythm. No murmurs, rubs or gallops. ABDOMEN: Soft, tenderness at epigastric region. Nondistended. (-) [place] sign. Bowel sounds present in all 4 quadrants. No rebound, guarding or masses. GENITOURINARY: Deferred EXTREMITIES: Moves all 4 extremities spontaneously. BACK: Moves all extremities with full range of motion. NEUROLOGICAL: Alert and oriented x3. Normal speech. Strength 5/ 5 in all extremities. PSYCH: Normal affect, normal mood. SKIN: Warm, dry, normal turgor. No rashes or lesions noted. Course - Vital Signs Vital signs: Temp Pulse Resp BP Pulse Ox 98.6 F 84 16 118/67 100 02/07/20 09:41 02/07/20 09:41 02/07/20 09:41 02/07/20 09:41 02/07/20 09:41 - Laboratory Result Diagrams: 02/07/20 10:00 02/07/20 11:09 Laboratory results interpreted by me: 02/07/20 02/07/20 02/07/20 10:00 10:00 10:45 WBC 12.9 H RDW 14.4 H Lymph % (Auto) 10.7 L Absolute Neuts (auto) 10.4 H Seg Neutrophils % 80.2 H Lipase Urine Protein 30 H Stool for White Cells MANY H 02/07/20 11:09 WBC RDW Lymph % (Auto) Absolute Neuts (auto) Seg Neutrophils % Lipase 19.4 L Urine Protein Stool for White Cells Discharge - Discharge Clinical Impression: Epigastric pain Condition: Stable Disposition: HOME, SELF-CARE Instructions: Abdominal Pain ([facility]), Antinausea Medication ([facility]), Vomiting ([facility]) Additional Instructions: Please continue taking your medication for your acid reflux. You may use Zofran prior to taking medication to alleviate your symptoms. You have been treated for your epigastric pain. Please take medication also as prescribed and follow- up with your primary care provider as soon as possible. Please follow-up to the emergency department if you have worsening symptoms or development of new symptoms. Prescriptions: Ondansetron [Zofran Odt 4 mg Tablet] 1 - 2 tab PO Q4HP PRN #10 tab.rapdis PRN Reason: Sucralfate [Carafate 1 gm Tablet] 1 gm PO BID 7 Days #14 tablet Referrals: AMAIRANI FARMER MD [NO LOCAL MD] - Follow up as needed
[2020-02-07 10:35] LABS: APPEARANCE,URINE SLIGHTLY-CLOUDY; BILIRUBIN,URINE NEGATIVE (NEGATIVE); COLOR,URINE YELLOW; GLUCOSE, URINE NEGATIVE (NEGATIVE); KETONES,URINE NEGATIVE (NEGATIVE); LEUKOCYTE ESTERASE,URINE NEGATIVE (NEGATIVE); NITRITE,URINE NEGATIVE (NEGATIVE); PROTEIN,URINE 30 mg/dL (NEGATIVE); URINE SPECIFIC GRAVITY 1.026; UROBILINOGEN,URINE NEGATIVE mg/dL (<2.0)
[2020-02-07] MEDS ORDERED: SUCRALFATE 1 GM TABLET PO ONE (10:42)
[2020-02-07 11:41] LABS: ALBUMIN 4.5 g/dL (3.5-5.0); ALKALINE PHOSPHATASE 79 U/L (38-126); ANION GAP 9 (5-19); ASPARTATE AMINO TRANSFERASE 20 U/L (14-36); BILIRUBIN,TOTAL 0.6 mg/dL (0.2-1.3); BLOOD UREA NITROGEN 14 mg/dL (7-20); CALCIUM 9.6 mg/dL (8.4-10.2); CARBON DIOXIDE 26 mmol/L (22-30); CHLORIDE 104 mmol/L (98-107); GLUCOSE 86 mg/dL (75-110); POTASSIUM 4.5 mmol/L (3.6-5.0); TOTAL PROTEIN 7.4 g/dL (6.3-8.2)
[2020-02-07 12:35] VITALS: BP 103/62
== END 2020-02-07 12:34 | disposition home or self-care (01) ==
LOC: ER 08:22
DX: R10.13 Epigastric pain (principal); K21.9 Gastro-esophageal reflux disease without esophagitis; R11.2 Nausea with vomiting, unspecified; R10.816 Epigastric abdominal tenderness; E10.9 Type 1 diabetes mellitus without complications; F41.9 Anxiety disorder, unspecified; Z79.899 Other long term (current) drug therapy; Z88.0 Allergy status to penicillin
CPT/HCPCS: 99284; 36415; 87045; 89055; 87205; 83690; 85025; 81025; 80053; 81001; J3490 ×3; S0119; J8540

== ENCOUNTER 2020-06-08 19:28 | Emergency (ER) | payer MEDICAID ==
--- NOTE | 2020-06-08 20:03 | ER Document Report ---
ED Medical Screen (RME) - General Chief Complaint: High Blood Sugar Stated Complaint: COUGHING AND HIGH SUGAR Time Seen by Provider: 06/08/20 19:57 TRAVEL OUTSIDE OF THE [place] IN LAST 30 DAYS: No - HPI Notes: Patient is a 19-year female with a history of type 1 diabetes who presents with hyperglycemia that began earlier today. She says her blood sugars have been in the 400s. She reports polyuria and polydipsia but denies nausea, vomiting, and abdominal pain. Patient also reports cough and nasal congestion for the past couple days and would like to be tested for Covid. - Related Data Allergies/Adverse Reactions: amoxicillin Allergy (Verified 02/07/20 10:17) Penicillins Allergy (Verified 02/07/20 10:17) Home Medications: humalog insulin Past Medical History Endocrine Medical History: Reports: Hx Diabetes Mellitus Type 1 Renal/ Medical History: Denies: Hx Peritoneal Dialysis GI Medical History: Reports: Hx Irritable Bowel Psychiatric Medical History: Reports: Hx Anxiety, Hx Depression Past Surgical History: Reports: Hx Tonsillectomy - Immunizations Immunizations up to date: Yes Physical Exam - Vital signs Vitals: Temp Pulse Resp BP Pulse Ox 97.9 F 93 16 117/71 99 06/08/20 19:33 06/08/20 19:33 06/08/20 19:33 06/08/20 19:33 06/08/20 19:33 - General General appearance: Appears well - Abdominal Inspection: Normal Tenderness: Nontender Course - Re-evaluation Re-evalutation: I have greeted and performed a rapid initial assessment of this patient. A comprehensive ED assessment and evaluation of the patient, analysis of test results and completion of medical decision making process will be conducted by an additional ED providers. - Vital Signs Vital signs: Temp Pulse Resp BP Pulse Ox 97.9 F 93 16 117/71 99 06/08/20 19:33 06/08/20 19:33 06/08/20 19:33 06/08/20 19:33 06/08/20 19:33
--- NOTE | 2020-06-08 21:54 | RADIOLOGY REPORT (SQ) ---
EXAM DESCRIPTION: X-RAY CHEST- One View CLINICAL HISTORY: Cough COMPARISON: October 14, 2019 TECHNIQUE: Single view of the chest. FINDINGS: There are no discrete air space infiltrates, pneumothoraces or pleural effusions. The pulmonary vascularity is normal. The cardiomediastinal silhouette is normal in size. No suspicious lytic or blastic osseous lesions are identified. IMPRESSION: There are no acute lung parenchymal findings.
[2020-06-08 22:03] LABS: ABSOLUTE EOSINOPHILS # (AUTO) 0.3 10^3/uL (0.0-0.6); ABSOLUTE LYMPHOCYTES (AUTO) 2.4 10^3/uL (0.5-4.7); ABSOLUTE MONOCYTES (AUTO) 0.6 10^3/uL (0.1-1.4); ABSOLUTE NEUT (AUTO) 5.2 10^3/uL (1.7-8.2); BASOPHILS % (AUTO) 0.2 % (0-2); EOSINOPHILS % (AUTO) 3.9 % (0-6); HEMATOCRIT 37.6 % (36.0-47.0); HEMOGLOBIN 12.8 g/dL (12.0-15.5); LYMPHOCYTES % (AUTO) 27.9 % (13-45); MEAN CORPUSCULAR HGB CONC 33.9 g/dL (32.0-36.0); MEAN CORPUSCULAR VOLUME 85 fl (80-97); MONOCYTES % (AUTO) 6.8 % (3-13); PLATELET COUNT 280 10^3/uL (150-450); RED CELL DISTRIBUTION WIDTH 14.1 % (11.5-14.0); SEGMENTED NEUTROPHILS % (AUTO) 61.2 % (42-78); TOTAL CELLS COUNTED % (AUTO) 100 %; WHITE BLOOD COUNT 8.5 10^3/uL (4.0-10.5)
[2020-06-08 22:20] LABS: ALBUMIN 4.1 g/dL (3.5-5.0); ALKALINE PHOSPHATASE 115 U/L (38-126); ANION GAP 14 (5-19); ASPARTATE AMINO TRANSFERASE 16 U/L (14-36); BILIRUBIN,DIRECT 0.1 mg/dL (0.0-0.4); BILIRUBIN,TOTAL 0.7 mg/dL (0.2-1.3); BLOOD UREA NITROGEN 15 mg/dL (7-20); CALCIUM 9.4 mg/dL (8.4-10.2); CARBON DIOXIDE 20 mmol/L (22-30); CHLORIDE 98 mmol/L (98-107); POTASSIUM 4.5 mmol/L (3.6-5.0); TOTAL PROTEIN 6.8 g/dL (6.3-8.2)
[2020-06-08 22:35] LABS: A TYPE INFLUENZA AG NEGATIVE (NEGATIVE); B INFLUENZA AG NEGATIVE (NEGATIVE)
[2020-06-08 22:42] LABS: GLUCOSE 412 mg/dL (75-110)
[2020-06-08] MEDS ORDERED: NORMAL SALINE 1000 ML 1,000 ML IV ONE (23:05)
--- NOTE | 2020-06-08 23:37 | ER Document Report ---
ED General - General Chief Complaint: High Blood Sugar Stated Complaint: COUGHING AND HIGH SUGAR Time Seen by Provider: 06/08/20 19:57 Primary Care Provider: GABRIELLA FINK PA-C [Primary Care Provider] - Follow up as needed TRAVEL OUTSIDE OF THE [place] IN LAST 30 DAYS: No - HPI Notes: 19-year-old female with history T1DM here for hyperglycemia. Patient states that since yesterday evening she has been having hyperglycemia. Sugars have been in the 400s with maximum being 581 which is around midnight. She has been bolusing herself insulin off of her pump. She has not tried changing locations of the pump to assure adequate insulin delivery. She last gave herself insulin around 5 PM. She reports increased thirst and urination. She also states she has had cough and congestion for a few days and would like a Covid test. She has had no vomiting, diarrhea or urinary symptoms. - Related Data Allergies/Adverse Reactions: amoxicillin Allergy (Verified 02/07/20 10:17) Penicillins Allergy (Verified 02/07/20 10:17) Home Medications: humalog insulin Past Medical History - General Information source: Patient - Social History Smoking Status: Never Smoker Family History: Reviewed & Not Pertinent Endocrine Medical History: Reports: Hx Diabetes Mellitus Type 1 Renal/ Medical History: Denies: Hx Peritoneal Dialysis GI Medical History: Reports: Hx Irritable Bowel Psychiatric Medical History: Reports: Hx Anxiety, Hx Depression Past Surgical History: Reports: Hx Tonsillectomy - Immunizations Immunizations up to date: Yes Review of Systems - Review of Systems Constitutional: denies: Fever EENT: See HPI Cardiovascular: denies: Chest pain Respiratory: Cough. denies: Short of breath Gastrointestinal: denies: Abdominal pain, Diarrhea, Vomiting Genitourinary: denies: Dysuria Female Genitourinary: No symptoms reported Musculoskeletal: No symptoms reported Skin: No symptoms reported Hematologic/Lymphatic: No symptoms reported Neurological/Psychological: No symptoms reported Physical Exam - Vital signs Vitals: Temp Pulse Resp BP Pulse Ox 97.9 F 93 16 117/71 99 06/08/20 19:33 06/08/20 19:33 06/08/20 19:33 06/08/20 19:33 06/08/20 19:33 - General General appearance: Appears well, Alert In distress: None - HEENT Head: Normocephalic, Atraumatic Extraocular movements intact: Yes Pupils: PERRL - Respiratory Respiratory status: Other - No kussmal respirations Breath sounds: Normal - Cardiovascular Rhythm: Regular Heart sounds: Normal auscultation - Abdominal Tenderness: Nontender - Extremities General upper extremity: Normal ROM General lower extremity: Normal ROM - Neurological Neuro grossly intact: Yes Cognition: Normal Orientation: AAOx4 - Psychological Associated symptoms: Normal affect - Skin Skin Temperature: Warm Course - Re-evaluation Re-evalutation: 19-year-old female T1DM here with hyperglycemia. On exam patient is well- appearing, hemodynamically stable, no abnormal respirations. She essentially requested Covid testing given that she has had a cough and congestion. Viral URI could be an explanation for her hyperglycemia. Laboratory evaluation has been completed from triage, not overtly suggestive of DKA given that she has a bicarb of 20 and no anion gap, VBG has been ordered to further delineate. She will be given fluids to assist with glucose excretion. Chest x-ray also done which is negative for consolidation. Influenza swab negative. 06/09/20 01:50 VBG has been obtained, pH is normal 06/09/20 02:00 Glucose has down trended. I went in to discuss results with patient, work-up overall not suggestive of DKA. Had patient bolused herself insulin off of her pump. Return precautions given, patient stable at time of discharge. - Vital Signs Vital signs: Temp Pulse Resp BP Pulse Ox 98.7 F 93 13 140/89 H 100 06/09/20 02:33 06/08/20 19:33 06/09/20 02:16 06/09/20 02:16 06/09/20 02:16 - Laboratory Result Diagrams: 06/08/20 21:42 06/08/20 21:42 Laboratory results interpreted by me: 06/08/20 06/08/20 06/08/20 20:05 21:42 21:42 RDW 14.1 H Sodium 132.2 L Carbon Dioxide 20 L Glucose 412 H* POC Glucose 427 H* Urine Glucose (UA) Urine Ketones Urine Blood 06/08/20 06/09/20 23:54 01:49 RDW Sodium Carbon Dioxide Glucose POC Glucose 256 H Urine Glucose (UA) >=500 H Urine Ketones 20 H Urine Blood MODERATE H - Diagnostic Test Radiology reviewed: Image reviewed, Reports reviewed Discharge - Discharge Clinical Impression: Hyperglycemia due to type 1 diabetes mellitus Disposition: HOME, SELF-CARE Additional Instructions: Please have 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 As discussed you will receive Covid results had some point this week. Return to the emergency department for any concerning worsening symptoms. Referrals: GABRIELLA FINK PA-C [Primary Care Provider] - Follow up as needed
[2020-06-08] MEDS ORDERED: RINGERS SOLUTION,LACTATED 1,000 ML IV ONE (23:38)
[2020-06-09 00:33] LABS: APPEARANCE,URINE SLIGHTLY-CLOUDY; BILIRUBIN,URINE NEGATIVE (NEGATIVE); COLOR,URINE YELLOW; GLUCOSE, URINE >=500 mg/dL (NEGATIVE); KETONES,URINE 20 mg/dL (NEGATIVE); LEUKOCYTE ESTERASE,URINE NEGATIVE (NEGATIVE); NITRITE,URINE NEGATIVE (NEGATIVE); PROTEIN,URINE NEGATIVE (NEGATIVE); URINE SPECIFIC GRAVITY 1.032; UROBILINOGEN,URINE NEGATIVE mg/dL (<2.0)
[2020-06-09 01:32] LABS: VENOUS BLOOD HCO3 23.8 mmol/L (20-32); VENOUS BLOOD PCO2 49.5 mmHg (35-63); VENOUS BLOOD PH 7.3 (7.30-7.42)
[2020-06-09 02:26] VITALS: BP 140/89
== END 2020-06-09 02:33 | disposition home or self-care (01) ==
LOC: ER 19:28
DX: E10.65 Type 1 diabetes mellitus with hyperglycemia (principal); R05 Cough; Z96.41 Presence of insulin pump (external) (internal); Z79.4 Long term (current) use of insulin; Z88.0 Allergy status to penicillin; Z20.828 Contact with and (suspected) exposure to other viral communicable diseases
CPT/HCPCS: 99284; 96360; 96361; 36415; 82962; 85025; 87635; 81025; 80053; 81001; 82803; 87804; 71045; J7030; J7120; C9803

== ENCOUNTER 2020-07-30 21:46 | Emergency (ER) | payer OTHER, MEDICAID ==
[2020-07-30 22:16] VITALS: BP 115/64
--- NOTE | 2020-07-30 23:11 | ER Document Report ---
ED Medical Screen (RME) - General Chief Complaint: Neck Injury Stated Complaint: NECK INJURY FROM WORK Primary Care Provider: GABRIELLA FINK PA-C [Primary Care Provider] - Follow up as needed TRAVEL OUTSIDE OF THE [place] IN LAST 30 DAYS: No - HPI Notes: 07/30/20 23:08 Rapid Medical Exam HPI: 19-year-old female presents to the ER complaining of posterior neck pain since early this morning. Patient works at [employer] and was attempting to get a "tote" basket from the bottom of a stack of them about 6 feet high. There was a vacuum and Vioxx at the top of that stack. When she bent over to get a lower wound vacuum fell striking her in the back of the neck. She denies head injury or loss consciousness. Denies upper extremity numbness or weakness. Complains of posterior midline neck pain worse with palpation. Denies range of motion deficit or pain with range of motion. No other associated symptoms. Physical Exam: GENERAL: Well-appearing, well-nourished and in no acute distress. HEAD: Atraumatic, normocephalic. ENT: Moist mucous membranes. RESP: Respirations even and unlabored CV- Regular rate. NEURO: No focal neurological deficits. Moves all extremities spontaneously and on command. My involvement in this patients care was limited to a rapid initial assessment. A comprehensive ED assessment and evaluation of the patient, analysis of test results, treatment, and completion of the medical decision making process will be performed by other ER providers. - Related Data Allergies/Adverse Reactions: amoxicillin Allergy (Verified 02/07/20 10:17) Penicillins Allergy (Verified 02/07/20 10:17) Home Medications: cymbalta. humalog Past Medical History - Social History Chew tobacco use (# tins/day): No Frequency of alcohol use: None Drug Abuse: None Endocrine Medical History: Reports: Hx Diabetes Mellitus Type 1 Renal/ Medical History: Denies: Hx Peritoneal Dialysis GI Medical History: Reports: Hx Irritable Bowel Psychiatric Medical History: Reports: Hx Anxiety, Hx Depression Past Surgical History: Reports: Hx Tonsillectomy - Immunizations Immunizations up to date: Yes Physical Exam - Vital signs Vitals: Temp Pulse BP Pulse Ox 98.3 F 85 115/64 97 07/30/20 22:13 07/30/20 22:13 07/30/20 22:13 07/30/20 22:13 Course - Vital Signs Vital signs: Temp Pulse Resp BP Pulse Ox 98.3 F 85 115/64 97 07/30/20 22:13 07/30/20 22:13 07/30/20 22:13 07/30/20 22:13 Doctor's Discharge - Discharge Referrals: GABRIELLA FINK PA-C [Primary Care Provider] - Follow up as needed
--- NOTE | 2020-07-30 23:42 | RADIOLOGY REPORT (SQ) ---
EXAM DESCRIPTION: CERV SP 4 OR 5 VIEWS [facility]: XR CERVICAL SPINE 4-5 VIEWS Views: 5 CLINICAL HISTORY: 19 years Female; blunt force to back of neck. neck pain; COMPARISON: None. FINDINGS: Alignment is normal. Facet joints are normal. No prevertebral edema. No focal subluxation. Disc spaces and vertebral body heights are preserved. No acute fracture. No bony foraminal stenosis. There are small bilateral rudimentary C7 cervical ribs. IMPRESSION: 1. Small bilateral C7 cervical ribs 2. No acute fracture or subluxation
--- NOTE | 2020-07-31 00:19 | ER Document Report ---
ED General - General Chief Complaint: Neck Injury Stated Complaint: NECK INJURY FROM WORK Primary Care Provider: GABRIELLA FINK PA-C [Primary Care Provider] - Follow up as needed TRAVEL OUTSIDE OF THE [place] IN LAST 30 DAYS: No - HPI Notes: Chief Complaint: neck pain Historian: History obtained from patient HPI: This is a 19-year-old female presents to the ER complaining of posterior neck pain since early this morning. Patient works at [employer] and was attempting to get a "tote" basket from the bottom of a stack of them about 6 feet high. There was a vacuum and Vioxx at the top of that stack. When she bent over to get a lower wound vacuum fell striking her in the back of the neck. She denies head injury or loss consciousness. Denies upper extremity numbness or weakness. Complains of posterior midline neck pain worse with palpation. Denies range of motion deficit or pain with range of motion. No other associated symptoms. ROS: Constitutional: no fevers. HEENT: no GOVEA, sore throat, or vision changes. CV: no chest pain or palpitations. Resp: no cough or SOB. GI: no abdominal pain, or n/v/d. : no dysuria, hematuria, or incont. MSK: midline cervical pain Skin: no rashes or itching. Neuro: no seizures, weakness, numbness, or confusion. Hematological: no ecchymosis or easy bleeding. Endocrine: no polyuria/polydipsia, no heat/cold intolerance. Psych: no SI/HI, AH/VH or memory loss. PMHx: Reviewed and agree as charted by RN. PSHx: Reviewed and agree as charted by RN. SOCHx: Reviewed and agree as charted by RN. FHX: No significant familial comorbid conditions directly related to patient complaint Current Medications: Reviewed and agree with the patient medications as charted by the RN. Allergies: Reviewed and agree with the listed allergies as charted by the RN Physical Exam: Vitals: Reviewed in chart as documented by RN. General: Alert and in NAD. Head: Normocephalic; atraumatic Eyes: PERRLA, Conjunctivae clear sclerae non-icteric bilat ENT: no soft palate swelling or uvular deviation Neck: trachea midline, no unilateral swelling/tenderness/lymphadenopathy CV: RRR, no M/R/G; symmetric distal pulses Resp: respirations even and unlabored, CTA bilat. GI: abd soft and nondistended. NTTP. normal BS. no masses/HSM. no CVAT bilat MSK: mild midline cervical tenderness around C6 and C 7. mild swelling. no step off or deformity. from of C spine- painless. from of BUE, strength 5/5 and equal bilat. sensory intact distally to bue. radial pulse 2+ bilat. cap refill < 3 sec bilat Skin: warm, moist, good turgor. no rash/lesions Neuro: Alert and oriented X 4. following CN 2-12 intact. no unilateral weakness/numbness Psych: No SI/HI or AH/VH. Medical Decision-Making: Medical Decision-making/Differential Diagnosis: Consider various etiologies including but not limited to skin/soft tissue structure injury, MSK injury, strain/sprain, fracture, dislocation, bursitis, tendonitis, contusion, ect Plan- will cspine xr since patient does have midline tenderness. She does have full range of motion of C-spine that is painless and has no neurologic symptoms. She is well-appearing and I have no concerns of compressive myelopathy or spinal cord injury. I reviewed imaging radiology do not see any acute findings. I agree with that read. No signs of spinous process fractures or further injury. Is likely just a straightforward contusion to the back of the neck. I recommend Tylenol Motrin for pain and ice to affected area. PCP follow-up this week. Return factors discussed. This course of action was discussed with the patient and/or family. They were amenable to this, verbalized understanding, and were without further questions. - Related Data Allergies/Adverse Reactions: amoxicillin Allergy (Verified 02/07/20 10:17) Penicillins Allergy (Verified 02/07/20 10:17) Home Medications: cymbalta. humalog Past Medical History - Social History Smoking Status: Never Smoker Chew tobacco use (# tins/day): No Frequency of alcohol use: None Drug Abuse: None Family History: Reviewed & Not Pertinent Endocrine Medical History: Reports: Hx Diabetes Mellitus Type 1 Renal/ Medical History: Denies: Hx Peritoneal Dialysis GI Medical History: Reports: Hx Irritable Bowel Psychiatric Medical History: Reports: Hx Anxiety, Hx Depression Past Surgical History: Reports: Hx Tonsillectomy - Immunizations Immunizations up to date: Yes Physical Exam - Vital signs Vitals: Temp Pulse BP Pulse Ox 98.3 F 85 115/64 97 07/30/20 22:13 07/30/20 22:13 07/30/20 22:13 07/30/20 22:13 Course - Vital Signs Vital signs: Temp Pulse Resp BP Pulse Ox 98.3 F 85 115/64 97 07/30/20 22:13 07/30/20 22:13 07/30/20 22:13 07/30/20 22:13 - Laboratory Results Critical Laboratory Results Reviewed: No Critical Results - Radiology Results Critical Radiology Results Reviewed: No Critical Results Discharge - Discharge Clinical Impression: Neck contusion Qualifiers: Encounter type: initial encounter Qualified Code(s): S10.93XA - Contusion of unspecified part of neck, initial encounter Condition: Stable Disposition: HOME, SELF-CARE Instructions: Contusion ([facility]) Additional Instructions: Tylenol Motrin for pain. Ice to injured area. Follow-up with your doctor in 1 week. Return to the ER for condition worsens. Forms: Return to Work Referrals: GABRIELLA FINK PA-C [Primary Care Provider] - Follow up as needed
== END 2020-07-31 00:31 | disposition home or self-care (01) ==
LOC: ER 21:46
DX: S10.93XA Contusion of unspecified part of neck, initial encounter (principal); W20.8XXA Other cause of strike by thrown, projected or falling object, initial encounter; Y93.89 Activity, other specified; Y92.512 Supermarket, store or market as the place of occurrence of the external cause; Y99.0 Civilian activity done for income or pay; E10.9 Type 1 diabetes mellitus without complications; F32.9 Major depressive disorder, single episode, unspecified; F41.9 Anxiety disorder, unspecified; Z79.899 Other long term (current) drug therapy; Z79.4 Long term (current) use of insulin; Z88.0 Allergy status to penicillin
CPT/HCPCS: 72050; 99283